=== PATIENT | female | born 1960 | race Caucasian/White ===

== ENCOUNTER → 2017-02-27 | Outpatient (CLI) | payer OTHER ==
[~2017-02-27] MED LIST: ALLERGY RELIEF10 M1 PO; ATIVAN0.5 MG PO; BENADRYL ALLERG25 MG PO; BENTYL20 MG PO; BENZONATATE200 MG PO; BUMETANIDE2 MG PO; BUSPAR10 MG PO; BUSPIRONE HCL15 MG PO; CARAFATE1 GM PO; CLOTRIMAZOLE-BE15 GM TP; COLACE100 MG PO; CREON DR 12,001 EAC1 PO; CREON1 CAPSULE PO; CYANOCOBAL1000 MCG/2 IM; DELZICOL400 M1 PO; DELZICOL400 MG PO; DEMADEX20 M1 PO; DEMADEX20 MG PO; DESYREL100 MG PO; DICLOFENAC SODI75 MG PO; DICYCLOMINE HCL20 MG PO; DILAUDID2 MG PO; DILAUDID4 MG PO; DOCUSATE SODIU100 MG PO; EFFIENT10 MG PO; ENDOCET 5-3251 EACH PO; FLEXERIL10 MG PO; FLINTSTONES CO1 EACH PO; GABAPENTIN600 MG PO; HYDROMORPHONE HC4 MG PO; IRON325 MG PO; K-DUR20 MEQ PO; KLOR-CON 88 MEQ PO; KLOR-CON SPRINK8 MEQ PO; LEXAPRO20 MG PO; LIDODERM 5% P1 PATCH TD; LINZESS145 MCG PO; LIPITOR80 MG PO; LOTRISONE15 GM TP; MIRAPEX0.25 MG PO; MORPHINE PO; MORPHINE SULFAT15 M1 PO; MULTI-DAY VITA1 EACH PO; MULTIPLE VITAM1 EACH PO; NEURONTIN300 MG PO; NITROLINGUAL S4.9 GM MM; NITROQUICK0.4 MG SL; ONDANSETRON HCL4 M2 PO; PANTOPRAZOLE SO40 MG PO; PERCOCET 5/31 TABLET PO; PERCOCET 7.51 TABLET PO; PLAVIX75 MG PO; POTASSIUM CHLOR8 ME2 PO; PREDNISONE50 MG PO; PROMETHAZINE12.5 M1 PO; PROTONIX40 MG PO; REQUIP0.5 MG PO; ROPINIROLE HCL2 MG PO; TORSEMIDE20 MG PO; TRANSDERM-SCO1 PATCH TD; TRANSDERM-SCOP1 EACH TD; TRAZODONE HCL50 MG PO; ULTRAM50 MG PO; VOLTAREN75 MG PO; ZENPEP DR 10,01 EACH PO; ZOFRAN4 MG PO; ZOFRAN8 MG PO; ZOLOFT100 MG PO; [UNRECOGNIZED DRUG - OTHER] PO
== END | disposition home or self-care (01) ==
LOC: RAD 13:06
DX: K83.8 Other specified diseases of biliary tract (principal); Z90.49 Acquired absence of other specified parts of digestive tract; R10.33 Periumbilical pain; R74.8 Abnormal levels of other serum enzymes; R19.4 Change in bowel habit; R11.2 Nausea with vomiting, unspecified; K21.9 Gastro-esophageal reflux disease without esophagitis; Z86.010 Personal history of colon polyps
CPT/HCPCS: 74181

== ENCOUNTER 2017-03-07 05:36 | Day surgery (SDC) | payer OTHER ==
[~2017-03-07] VITALS: Ht 152.4 cm; Wt 90.2 kg
[2017-03-07] VITALS (8 sets, daily range): BP systolic 100–150; BP diastolic 56–80
[2017-03-08 03:24] VITALS: BP 102/60
[2017-03-08 08:09] VITALS: BP 124/76
[2017-03-08 09:15] VITALS: BP 92/51
[2017-03-08 11:05] VITALS: BP 120/62
[2017-03-08 15:15] VITALS: BP 121/62
== END 2017-03-08 19:37 | disposition home or self-care (01) ==
LOC: SDC 05:36 → 2EAST 10:15 → 2SOUTH 10:15 → ENRESERV 10:23 → SDC 10:45 → ENRESERV 12:33 → 2EAST 13:35
PROC: 0WUF4JZ Supplement Abdominal Wall with Synthetic Substitute, Percutaneous Endoscopic Approach (ICD-10-PCS; principal; 2017-03-07)
DX: K43.2 Incisional hernia without obstruction or gangrene (principal); I10 Essential (primary) hypertension; I25.10 Atherosclerotic heart disease of native coronary artery without angina pectoris; K21.9 Gastro-esophageal reflux disease without esophagitis; I65.29 Occlusion and stenosis of unspecified carotid artery; K66.0 Peritoneal adhesions (postprocedural) (postinfection); E66.01 Morbid (severe) obesity due to excess calories; Z68.38 Body mass index [BMI] 38.0-38.9, adult; Z87.891 Personal history of nicotine dependence; Z88.0 Allergy status to penicillin; Z79.02 Long term (current) use of antithrombotics/antiplatelets; Z86.14 Personal history of Methicillin resistant Staphylococcus aureus infection; Z98.84 Bariatric surgery status
CPT/HCPCS: 94799; C1781; G0378; J0690; J1100; J1170; J1885; J2250; J2405; J3010; J7120; S0020

== ENCOUNTER → 2017-03-23 | Outpatient (CLI) | payer OTHER ==
[~2017-03-23] VITALS: Ht 152.4 cm; Wt 90.7 kg
== END | disposition home or self-care (01) ==
LOC: AMB 14:45
DX: K29.70 Gastritis, unspecified, without bleeding (principal); R13.10 Dysphagia, unspecified; R10.9 Unspecified abdominal pain; D50.9 Iron deficiency anemia, unspecified; Z98.84 Bariatric surgery status; K21.9 Gastro-esophageal reflux disease without esophagitis; E66.9 Obesity, unspecified; Z87.891 Personal history of nicotine dependence
CPT/HCPCS: 88305; 88342 TC

== ENCOUNTER 2017-04-05 15:57 | Emergency (ER) | payer OTHER ==
[~2017-04-05] VITALS: Ht 152.4 cm; Wt 84.5 kg
[2017-04-05 18:26] LABS: CHLORIDE 115 mEq/L (99-109); POTASSIUM 4.5 mEq/L (3.7-5.4); SODIUM 143 mEq/L (136-147)
[2017-04-05 18:28] LABS: GLUCOSE 112 mg/dL (70-99)
[2017-04-05 18:29] LABS: ANION GAP 14 MEQ/L (2-14)
[2017-04-05 18:30] LABS: TOTAL BILIRUBIN 0.3 mg/dL (0.0-1.0)
[2017-04-05 18:31] LABS: ALKALINE PHOSPHATASE 116 IU/L (3-129)
[2017-04-05 18:32] LABS: GFR ESTIMATE (CALCULATED) > 59 mL/min/
[2017-04-05 18:33] LABS: UREA NITROGEN (BUN) 10 mg/dL (9-23)
[2017-04-05 18:41] LABS: QUANTITATIVE HCG < 4.0 MIU/ML
[2017-04-05 18:43] LABS: HEMATOCRIT 39.4 % (36.0-46.0); MCH 26.2 PG (29.0-34.0); MCHC 31.2 G/DL (30.0-36.0); MCV 83.8 FL (83-99); PLATELET COUNT 106 K/uL (156-360); RBC DIS.WIDTH-CV 16.4 % (11.8-14.6); RBC DIS.WIDTH-SD 50.6 % (39-53); WHITE BLOOD COUNT 4.9 K/uL (4.1-10.2)
[2017-04-05 19:04] LABS: ADD MIUA? YES; BILIRUBIN NEGATIVE; BLOOD NEGATIVE; COLOR YELLOW ((YELLOW)); GLUCOSE (STRIP) NEGATIVE; KETONES 5; LEUKOCYTES TRACE; NITRITE NEGATIVE; PROTEIN (STRIP) NEGATIVE; SPECIFIC GRAVITY 1.024 (1.000-1.030)
[2017-04-05 19:24] LABS: BACTERIA NONE SEEN /HPF; EPITHELIAL CELLS RARE /HPF; MUCUS TRACE /LPF; RED BLOOD CELLS 0-5 /HPF (0-5); UCUL ADDED? NO; WHITE BLOOD CELLS 0-5 /HPF (0-5)
[2017-04-05] MEDS ORDERED: PHENERGAN25 MG PR (19:48)
[2017-04-05 21:32] LABS: CHLORIDE 119 mEq/L (99-109); SODIUM 143 mEq/L (136-147)
[2017-04-05 21:33] LABS: GLUCOSE 115 mg/dL (70-99)
[2017-04-05 21:34] LABS: POTASSIUM 3.4 mEq/L (3.7-5.4)
[2017-04-05 21:35] LABS: ANION GAP 7 MEQ/L (2-14)
[2017-04-05 21:37] LABS: GFR ESTIMATE (CALCULATED) > 59 mL/min/
[2017-04-05 21:38] LABS: UREA NITROGEN (BUN) 10 mg/dL (9-23)
[2017-04-05 21:50] VITALS: BP 128/67
== END 2017-04-05 21:53 | disposition home or self-care (01) ==
LOC: EXP 15:57 → EME 15:57 → EXP 21:53
PROVIDERS: Nurse Practitioner Family
DX: R11.0 Nausea (principal); R10.9 Unspecified abdominal pain; Z98.84 Bariatric surgery status; I10 Essential (primary) hypertension; E11.9 Type 2 diabetes mellitus without complications; E03.9 Hypothyroidism, unspecified; F41.9 Anxiety disorder, unspecified; F32.9 Major depressive disorder, single episode, unspecified; Z86.73 Personal history of transient ischemic attack (TIA), and cerebral infarction without residual deficits; Z88.0 Allergy status to penicillin; Z87.891 Personal history of nicotine dependence
CPT/HCPCS: 80048 91; 80053; 81003; 84702; 85027; 99281; 99285; J1200; J1885; J2060; J2405; J2765; J7030

== ENCOUNTER 2017-11-08 10:01 | Day surgery (SDC) | payer OTHER ==
[~2017-11-08 10:01] MED LIST changes: +PHENERGAN25 MG PR
[2017-11-08 18:00] VITALS: BP 98/56
[2017-11-08 19:00] VITALS: BP 111/62
[2017-11-08 22:30] VITALS: BP 120/63
[2017-11-09 04:30] VITALS: BP 106/56
[2017-11-09 08:40] VITALS: BP 93/51
[2017-11-09 12:16] VITALS: BP 107/58
[2017-11-09 17:01] VITALS: BP 112/63
== END 2017-11-09 18:09 | disposition home or self-care (01) ==
LOC: CATH 10:01 → ENRESERV 16:04 → 2SOUTH 16:05 → 4EAST 16:05 → ENRESERV 17:29 → 4EAST 18:00
DX: I25.119 Atherosclerotic heart disease of native coronary artery with unspecified angina pectoris (principal); Z95.5 Presence of coronary angioplasty implant and graft; I10 Essential (primary) hypertension; E78.5 Hyperlipidemia, unspecified; Z79.82 Long term (current) use of aspirin; E66.01 Morbid (severe) obesity due to excess calories; Z68.39 Body mass index [BMI] 39.0-39.9, adult
CPT/HCPCS: 93931; C1769; C1887; G0378; J1200; J1644; J2250; J3010; J7040